=== PATIENT | male | born 1955 | race Caucasian/White ===

== ENCOUNTER 2025-07-20 10:07 | Outpatient (CLI) | payer MEDICARE, OTHER ==
[2025-07-20 10:47] LABS: Estimated GFR - POC 65.0
== END 2025-07-20 10:08 | disposition home or self-care (01) ==
LOC: SCSMRI 10:07
PROVIDERS: ATTEND Urology
DX: C61 Malignant neoplasm of prostate (principal)
CPT/HCPCS: 36415; 72197; 82565